=== PATIENT | female | born 2000 | race Two or more races ===

== ENCOUNTER 2023-03-09 05:14 | Emergency (ER) | payer MEDICAID ==
[~2023-03-09] VITALS: Ht 152.4 cm; Wt 81.8 kg
[2023-03-09 05:55] VITALS: BP 100/66; PULSE 112; RESP 16; O2SAT 96
[2023-03-09] MEDS ORDERED: ACETAMINOPHEN 500 MG TAB PO ONE (07:30)
[2023-03-09 07:41] VITALS: TEMP 98.4
[2023-03-09] MEDS ORDERED: IBUP-1456 PO (08:19)
== END 2023-03-09 08:46 | disposition home or self-care (01) ==
LOC: ER 05:14
DX: S00.33XA Contusion of nose, initial encounter (principal); Y04.2XXA Assault by strike against or bumped into by another person, initial encounter; Y93.89 Activity, other specified; Y92.89 Other specified places as the place of occurrence of the external cause; Y99.8 Other external cause status
CPT/HCPCS: 70110; 70160